=== PATIENT | female | born 1945 | race Caucasian/White ===

== ENCOUNTER 2017-10-07 05:28 | Day surgery (SDC) | payer MEDICARE, OTHER ==
[2017-10-07] MEDS ORDERED: Sodium Chloride 0.9% 10 ML Syringe FLUSH PRN (06:00)
[2017-10-07] MEDS ORDERED: Dextrose 5%-0.45% NaCl 1,000 ML IV SCH (06:00)
[2017-10-07] MEDS ORDERED: Midazolam 1 MG/ML 2 ML SDV ONE (06:25)
[2017-10-07] MEDS ORDERED: fentaNYL 100 MCG/2 ML SDV ONE (06:25)
[2017-10-07] MEDS ORDERED: fentaNYL 100 MCG/2 ML SDV IV ONE ×2 (06:33→06:34)
[2017-10-07] MEDS ORDERED: Midazolam 1 MG/ML 2 ML SDV IV ONE (06:35)
--- NOTE | 2017-10-07 12:55 | OR ---
DATE: 10/07/2017 PROCEDURES: Esophagogastroduodenoscopy and multiple pinch biopsies. INSTRUMENT USED: GIF-H180 Olympus video panendoscope. PREMEDICATIONS: No oral topical anesthesia used. Fentanyl 100 mcg intravenous, Versed 1 mg intravenous. The procedure was done under pulse oximetry, BP recording, and alarm security or surveillance monitor. INDICATION: Diabetic with persistent nausea and progressive weight loss, unexplained, and not responsive to medical measures. DESCRIPTION OF PROCEDURE: Esophagogastroduodenoscopy is performed for detection of any active erosive lesions. Malignancy also under consideration. H. pylori status to be determined. Endoscopic hemostasis therapy if needed. The scope was passed with ease. Adequate visualization of the esophagus was made from proximal to distal areas. No upper esophageal lesions identified. No distal esophageal stricture. No uphill or downhill esophageal varices. No Ning-Chung tear. No evidence of erosive esophagitis by [place] criteria. No esophageal polyp or tumor mass identified. Z-line was seen at around 40 cm distal to the oral verge, configuration consistent with grade 1 by ZAP classification. No proximal gastric varices noted. Gastric fundus examination by retroflexion showed no polypoid lesions. No gastric ulcer, malignant mass, or vascular ectasia identified. Duodenal bulb showed no ulcer. Visualized second part of the duodenum was unremarkable. Multiple pinch biopsies were taken from the gastric antrum and proximal body and sent for PyloriTek test for H. pylori, and if negative in an hour, the tissue is to be sent for histopathology. No bleeding was noted from any of the visualized areas at the completion of examination. Photographs were taken of the duodenal bulb, gastric antrum, fundus, and distal esophagus. IMPRESSION: Normal study. The patient tolerated the procedure well. [facility] /[id number]
== END 2017-10-07 08:15 | disposition home or self-care (01) ==
LOC: DL.ENDO 05:28
PROVIDERS: ATTEND Internal Medicine Gastroenterology
DX: R11.0 Nausea (principal); R63.4 Abnormal weight loss; K31.89 Other diseases of stomach and duodenum; I10 Essential (primary) hypertension; E78.5 Hyperlipidemia, unspecified; E11.9 Type 2 diabetes mellitus without complications
CPT/HCPCS: 87077; 88305; J2250; J3010; J7042

== ENCOUNTER 2017-10-11 07:17 | Day surgery (SDC) | payer MEDICARE, OTHER ==
[~2017-10-11 07:17] MED LIST: Midazolam 1 MG/ML 2 ML SDV ONE; fentaNYL 100 MCG/2 ML SDV ONE
[2017-10-11] MEDS ORDERED: fentaNYL 100 MCG/2 ML SDV IV ONE ×3 (07:18→08:37)
[2017-10-11] MEDS ORDERED: Midazolam 1 MG/ML 2 ML SDV IV ONE ×9 (07:18→08:55)
[2017-10-11] MEDS ORDERED: Sodium Chloride 0.9% 10 ML Syringe FLUSH PRN (07:28)
[2017-10-11] MEDS ORDERED: Dextrose 5%-0.45% NaCl 1,000 ML IV SCH (07:30)
--- NOTE | 2017-10-11 09:31 | OR ---
DATE: 10/11/2017 PROCEDURES: Total colonoscopy, narrow-band imaging, and cold snare polypectomy. INSTRUMENT USED: CF-H180 [place] Olympus video colonoscope. PREMEDICATIONS: Fentanyl 100 mcg intravenous, Versed 5 mg intravenous. Nasal O2 cannula. The procedure was done under pulse oximetry, BP recording, and environmental monitoring specialist. INDICATION: The patient with progressive weight loss and recent CT suggestive of cecal lesion. Colonoscopic examination is done for detection of any polypoid lesions and removal, endoscopic hemostasis therapy if needed. DESCRIPTION OF PROCEDURE: Initial rectal exam was unremarkable. Rigid anoscopy was normal. The colonoscope was passed with ease. Scattered diverticula were noted in the distal left colon along with some deformity. The scope was passed with ease up to the ileocecal area. Photographs were taken including NBI views of the cecum showing 5-mm sized polyp. Cold snare polypectomy was done. The tissue was retrieved and sent for histopathology. There was some amount of fecal material that had to be aspirated clear. No bleeding was noted from any of the visualized areas at the commencement of examination. No stricture. No vascular ectasia. No large isolated ulcerations seen. No evidence of diffuse inflammatory bowel disease in the form of friability, contact bleeding, or ulcerations. Probing the proximal sides of folds and flexures using adequate distention and clearing up the stool material, withdrawal of the scope was made. [id number] time over 6 minutes. No bleeding was noted from any of the visualized areas at the completion of examination. IMPRESSION: 1. Diverticulosis. 2. Cecal polyp. The patient tolerated the procedure well. [facility] /[id number]
== END 2017-10-11 10:25 | disposition home or self-care (01) ==
LOC: DL.ENDO 07:17
PROVIDERS: ATTEND Internal Medicine Gastroenterology
DX: R63.4 Abnormal weight loss (principal); D12.0 Benign neoplasm of cecum; K57.30 Diverticulosis of large intestine without perforation or abscess without bleeding; E11.9 Type 2 diabetes mellitus without complications; F17.200 Nicotine dependence, unspecified, uncomplicated; E78.5 Hyperlipidemia, unspecified
CPT/HCPCS: J2250; J3010; J7042